=== PATIENT | male | born 1955 | race Caucasian/White ===

== ENCOUNTER 2019-03-28 18:49 | Emergency (ER) | payer OTHER ==
[~2019-03-28] VITALS: Ht 167.6 cm; Wt 78.0 kg
[2019-03-28] MEDS ORDERED: IBUPROFEN 600 MG TABLET PO ONE ×2 (19:10→19:30)
--- NOTE | 2019-03-28 19:10 | NUR ---
REPORT REC'D FROM JAVIER ESTES FOR ROBERT.
--- NOTE | 2019-03-28 19:25 | NUR ---
XRAY IN PROGRESS AT THE BEDSIDE.
--- NOTE | 2019-03-28 19:32 | NUR ---
PT AMBULATED TO THE BATHROOM WITH A STEADY GAIT.
--- NOTE | 2019-03-28 20:09 | NUR ---
Patient discharged to home in stable condition. Written and verbal after care instructions given. Patient verbalizes understanding of instruction AND RX. PT REC'D A COPY OF THE IMAGING FINDINGS. PT AMBULATED OUT WITH A STEADY GAIT. PT'S IS DRIVING PT HOME. VSS
[2019-03-28 20:10] VITALS: BP 135/78
== END 2019-03-28 20:11 | disposition home or self-care (01) ==
LOC: ER 18:55
DX: S20.211A Contusion of right front wall of thorax, initial encounter (principal); W07.XXXA Fall from chair, initial encounter; Y93.89 Activity, other specified; Y92.89 Other specified places as the place of occurrence of the external cause; Y99.8 Other external cause status
CPT/HCPCS: 71100-TC